=== PATIENT | male | born 1990 | race Caucasian/White ===

== ENCOUNTER 2020-11-15 14:40 | Outpatient (CLI) | payer BC, SELFPAY ==
--- NOTE | ~2020-11-15 | US_ITS ---
EXAMINATION: US soft tissue groin RT DATE: 11/15/2020 15:04 INDICATION: Right inguinal lymphadenopathy. TECHNIQUE: Multiple grayscale and Doppler ultrasound images of the right inguinal region were obtaine d. COMPARISON: None FINDINGS: There are multiple enlarged right inguinal lymph nodes. A sales account representative node measures 2.6 x 2.9 x 1.8 cm. IMPRESSION: 1. Right inguinal lymphadenopathy, which may be benign or malignant. Consider ultrasound-guided core needle biopsy. Reviewed, dictated and finalized at location A. IMPRESSION: 1. Right inguinal lymphadenopathy, which may be benign or malignant. Consider u ltrasound-guided core needle biopsy.
[2020-11-15 15:22] LABS: Basophils Percent Auto 0.6 % (0.2-1.2); Eosinophils Absolute Auto 0.3 K/mm3 (0-0.3); Eosinophils Percent Auto 4.1 % (0-4.4); Hematocrit 42.5 % (42.0-52.0); Hemoglobin 14.3 g/dL (14.0-18.0); Immature Granulocyte Absolute 0.02 K/mm3 (0.00-0.031); Immature Granulocyte Percent A 0.3 % (0-0.5); Lymphocytes Absolute Auto 1.75 K/mm3 (0.9-3.2); Mean Corpuscular HGB Conc 33.6 g/dl (32-36); Mean Platelet Volume 8.8 fl (7.4-10.4); Monocytes Absolute Auto 0.6 K/mm3 (0.1-0.6); Monocytes Percent Auto 8.6 % (2.6-8.5); Neutrophils Absolute Auto 4.3 K/mm3 (1.3-6.7); Neutrophils Percent Auto 61.4 % (45.5-73.1); Platelet Count Result 215 k/mm3 (150-375); Red Blood Count 4.62 M/mm3 (4.6-6.20); Red Cell Distribution Width 12.2 % (11.5-14.5)
[2020-11-15 15:33] LABS: Alanine Aminotransferase 38 U/L (4-50); Albumin Level 4.4 g/dL (3.5-5.1); Alkaline Phosphatase 63 U/L (38-126); Anion Gap 5 mmol/L (8-16); Aspartate Amino Transferase 37 U/L (17-59); Bilirubin,Total 0.6 mg/dL (0.2-1.3); Blood Urea Nitrogen 3 mg/dL (9-20); Calcium 9.9 mg/dL (8.4-10.2); Carbon Dioxide 33 mmol/L (22-30); Chloride 102 mmol/L (98-107); Estimated Glomerular Filt Rate > 60; Glucose 97 mg/dL (65-110); Sodium 140 mmol/L (137-145)
== END 2020-11-15 14:41 | disposition home or self-care (01) ==
PROVIDERS: PCP Family Medicine; Visit Provider Nurse Practitioner Family
DX: R59.9 Enlarged lymph nodes, unspecified (principal); R10.9 Unspecified abdominal pain
CPT/HCPCS: 36415; 76882; 80053; 85025

== ENCOUNTER 2020-11-26 13:21 | Outpatient (CLI) | payer BC, SELFPAY ==
--- NOTE | ~2020-11-26 | US_ITS ---
EXAMINATION: US soft tissue groin RT DATE: 11/26/2020 13:53 INDICATION: Right inguinal lymphadenopathy. TECHNIQUE: Multiple grayscale and Doppler ultrasound images of the right groin were obtained. COMPARISON: Ultrasound 11/15/2020 FINDINGS: There are normal-sized right inguinal lymph nodes with interval improvement. IMPRESSION: 1. Normal right inguinal lymph nodes with interval improvement. The biopsy was canceled. Reviewed, dictated and finalized at location A.
== END 2020-11-26 13:22 | disposition home or self-care (01) ==
PROVIDERS: PCP Family Medicine; Visit Provider Nurse Practitioner Family
DX: R59.0 Localized enlarged lymph nodes (principal)
CPT/HCPCS: 76882

== ENCOUNTER 2020-12-24 15:58 | Outpatient (CLI) | payer BC, SELFPAY ==
--- NOTE | ~2020-12-24 | XR_ITS ---
EXAMINATION: XR tibia fibula LT 2V, XR tibia fibula RT 2V DATE: 12/24/2020 16:26 INDICATION: Bilateral lower limb pain. TECHNIQUE: 1. Anteroposterior and lateral views of the left tibia and fibula were obtained. 2. Anteroposterior and lateral views of the right tibia and fibula were obtained. COMPARISON: None. FINDINGS: Normal alignment at the both lower legs. No fracture. Joint spaces are normal at the bilateral knees, ankles and subtalar joints. Soft tissues are unremarkable. No knee or ankle joint effusions. IMPRESSION: 1. Negative bilateral lower leg radiographs. Reviewed, dictated and finalized at location A. IMPRESSION: 1. Negative bilateral lower leg radiographs.
== END 2020-12-24 15:59 | disposition home or self-care (01) ==
LOC: ANHIMG 16:03
PROVIDERS: PCP Family Medicine; Visit Provider Physician Assistant Medical
DX: M79.604 Pain in right leg (principal); M79.605 Pain in left leg; R59.0 Localized enlarged lymph nodes
CPT/HCPCS: 73590

== ENCOUNTER 2024-03-09 09:35 | Emergency (ER) | payer SELFPAY ==
[2024-03-09 09:43] VITALS: BP 128/75; PULSE 73; RESP 16; TEMP 36.5; O2SAT 99
--- NOTE | 2024-03-09 09:44 | ED_ITS ---
HPI - Skin/Abscess/Foreign Bdy General Chief complaint: Skin/Abscess/Foreign Body Stated complaint: right thumb swollen/painful Time Seen by Provider: 03/09/24 09:45 Source: patient and RN notes reviewed Mode of arrival: ambulatory Limitations: dementia History of Present Illness HPI narrative: 34-year-old male presents concern for redness, swelling, pain to the 1st digit of the right hand. Reports he had a small cut last week that had a small amount of purulence drainage shortly after and since then symptoms have progressed to the entire finger being tender, red, swollen. He denies decreased strength, sensation, range of motion in the digit. MD complaint: other (Redness) Related Data Allergies Allergy/AdvReac Type Severity Reaction Status Date / Time Penicillins Allergy Intermediate rash Verified 12/24/20 13:41 Review of Systems Review of Systems: CONSTITUTIONAL: Denies malaise, chills, sweats, or fever. EYES: Denies redness, or discharge. ENT: Denies rhinorrhea, congestion, swollen lips, swollen tongue CARDIOVASCULAR: Denies chest pain, palpitations, or edema. RESPIRATORY: Denies cough or dyspnea. GASTROINTESTINAL: Denies abdominal pain, nausea, vomiting SKIN: Reports redness, swelling, tenderness of the 1st digit of the right hand. Denies purulent drainage, vesicles, bullae, numbness, pain beyond proportion MUSCULOSKELETAL: Denies joint pain or myalgia. NEUROLOGIC: Denies headache. All systems reviewed & are unremarkable except as noted in HPI and below PMFSH Past Medical History Medical History BMI 20.0-20.9, adult Family History Family History Father Hypertension Acute myocardial infarction Mother Ovarian cancer Sibling No problems noted. 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 There is no relevant family history pertinent to the presenting complaint Exam Narrative: GENERAL: Well-appearing, well-nourished, and in no acute distress. HEAD: Normocephalic, atraumatic. EYES: PERRLA, conjunctivae clear ENT: Mucous membranes moist. NECK: Supple. No lymphadenopathy CHEST: Clear to auscultation. No respiratory distress. HEART: Regular rate and rhythm. SKIN: Warm, dry. Erythema, induration, tenderness, warmth with sharp margins noted to the 1st digit of the right hand. No vesicles, bullae, necrosis, ecchymosis, crepitus noted. NEURO: Alert and oriented x3. PSYCH: Normal mood and affect Course Course Emergency Course: Patient is aware of diagnosis, understands and agrees to treatment plan. Anticipatory guidance given. Patient agrees to follow-up as directed and is aware of reasons to seek care at the emergency department. Portions of this record may have been created with voice recognition software Level of Care: [facility] Visit Vital Signs Vital signs: Vital Signs Temperature 97.7 F 03/09/24 09:43 Pulse Rate 73 03/09/24 09:43 Respiratory Rate 16 03/09/24 09:43 Blood Pressure 128/75 03/09/24 09:43 Pulse Oximetry 99 03/09/24 09:43 Oxygen Delivery Room Air 03/09/24 09:43 Temperature 97.7 F 03/09/24 09:43 Pulse Rate 73 03/09/24 09:43 Respiratory Rate 16 03/09/24 09:43 Blood Pressure 128/75 03/09/24 09:43 Pulse Oximetry 99 03/09/24 09:43 Oxygen Delivery Room Air 03/09/24 09:43 Reviewed. MDM - Skin/Abscess/Foreign Bdy MDM Narrative Medical decision making narrative: I evaluated this in the [facility]. History is obtained from patient who is an independent historian and physical exam was performed.? Available medical records were reviewed. ? Exam findings and relevant testing show no acute concerns or changes; patient is non-toxic appearing and is in no distress. No risk factors or findings concerning for epidural abscess, diskitis, vertebral osteomyelitis, cord compression, cauda equina, vertebral fracture or bone malignancy, AAA, or pyelonephritis. Patient instructed to consider further imaging and workup through their primary care physician as an outpatient if symptoms persist. Does not appear at this time to be erythema multiforme, bullous, SJS, TEN; no evidence at this time to suggest RMSF, NSTI, endocarditis or Lyme disease; patient looks well, nontoxic and is tolerating oral intake; no neurologic signs or symptoms; no headache, photophobia or neck pain; afebrile.? Patient does not have history of of penetrating trauma, laceration, blunt trauma, recent surgery, immunosuppression, malignancy, obesity, alcoholism, corticosteroid use.? Discussed the importance of follow-up, patient agrees; question, cellulitis versus necrotizing soft tissue infection versus abscess.?? Patient is appropriate for outpatient treatment and follow-up. Critical Care Time Critical Care Time Critical Care Time: No Discharge Plan Discharge Clinical Impression: Cellulitis Patient Disposition: Home, Self-Care Condition: Stable Instructions: Antibiotic Form, Cellulitis (ED) Additional Instructions: Please follow up with your Primary Care Doctor within 48-72 hours - call for an appointment. Rest and elevate affected area; apply moist heat 3-4 times daily for 10-15 minutes. Take Motrin 600mg every 8 hours with food for pain. Please take Antibiotics as directed. If you experience any worsening redness, swelling, streaking (red lines), fever or chills please go to the ER Prescriptions: New clindamycin HCl 300 mg capsule 300 mg PO Q8H 7 Days Qty: 21 0RF Follow-up/Referrals: PHYSICIAN,ENVIRONMENTAL RESEARCH SCIENTIST [Primary Care Provider] - Time of Disposition: 09:50
== END 2024-03-09 09:53 | disposition home or self-care (01) ==
PROVIDERS: Emergency Provider Nurse Practitioner
DX: L03.011 Cellulitis of right finger (principal)
CPT/HCPCS: 99213; G0463

== ENCOUNTER 2024-11-18 14:56 | Emergency (ER) | payer SELFPAY ==
--- OUTSIDE RECORDS SUMMARY | 2024-11-18 14:58 | XMS_ITS | Clinical Summary ---
Author Organization [facility] Address [address] [place] [address] Care Team Providers Care Welder Fabricator Name Role Phone Unavailable Primary Care Provider Unavailabl e Social History Tobacco Use Types Packs/Day Years Used Date Smoking Tobacco: Never Assessed Sex and Gender Information Value Date Recorded Sex Assigned at Not on file Legal Sex Male 5:40 PM CDT Gender Identity Not on file Sexual Orientation Not on file Plan of Treatment Health Maintenance Due Date Last Done Comments HPV VACCINES (1 - Male 3-dose series) 2005 DTAP/TDAP/TD VACCINES (1 - Tdap) 2009 HEPATITIS B VACCINES (1 of 3 - 19+ 3-dose series) 02/05 INFLUENZA VACCINE (#1) 2024
[2024-11-18 15:04] VITALS: BP 115/69; PULSE 71; RESP 18; TEMP 36.6; O2SAT 99
--- NOTE | 2024-11-18 15:31 | ED_ITS ---
HPI - Male Genitourinary General Chief complaint: Urogenital-Male Stated complaint: Urinary Problem Time Seen by Provider: 11/18/24 15:31 Source: patient Mode of arrival: ambulatory Limitations: no limitations History of Present Illness HPI Narrative: 34-year-old male presents with dysuria for 1 week. No other symptoms. Denies penile discharge. Concern for STI due to recent break-up with fiance. All systems reviewed and negative except as noted above. Related Data Allergies Allergy/AdvReac Type Severity Reaction Status Date / Time Penicillins Allergy Intermediate rash Verified 11/18/24 15:24 [facility] Past Medical History Medical History BMI 20.0-20.9, adult Family History Family History Father Hypertension Acute myocardial infarction Mother Ovarian cancer Sibling No problems noted. 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 There is no relevant family history pertinent to the presenting complaint. Exam Narrative: GENERAL: This is a well-nourished, well-developed patient, in no apparent distress. HEAD: normocephalic, atraumatic. EYES: PERRL. Sclera clear/white. Vision is grossly intact. EARS: External ears normal NOSE: External nose normal NECK: Neck supple, non-tender without lymphadenopathy, masses or thyromegaly. CARDIOVASCULAR: Regular rate and rhythm without murmurs, gallops, or rubs. RESPIRATORY: Clear to auscultation. Breath sounds equal bilaterally. No wheezes, rales, or rhonchi. SKIN: warm, Dry, intact with no suspicious lesions or rash, good texture and t urgor. NEURO: awake, alert, and oriented to person, place and time. There were no obvious focal neurologic abnormalities. EXTREMITIES: No joint tenderness, effusion, or edema noted. Course Course Level of Care: Express Care Visit Vital Signs Vital signs: Vital Signs Temperature 36.6 C 11/18/24 15:04 Pulse Rate 71 11/18/24 15:04 Respiratory Rate 18 11/18/24 15:04 Blood Pressure 115/69 11/18/24 15:04 Pulse Oximetry 99 11/18/24 15:04 Oxygen Delivery Room Air 11/18/24 15:04 Temperature 36.6 C 11/18/24 15:04 Pulse Rate 71 11/18/24 15:04 Respiratory Rate 18 11/18/24 15:04 Blood Pressure 115/69 11/18/24 15:04 Pulse Oximetry 99 11/18/24 15:04 Oxygen Delivery Room Air 11/18/24 15:04 Reviewed MDM - Male Genitourinary MDM Narrative Medical decision making narrative: urinalysis normal. Testing ordered for gonorrhea, chlamydia and Trichomonas. Patient treated with ceftriaxone IM today. given Prescription for doxycycline. Differential Diagnosis Differential diagnosis: Likely urinary tract infection, urethritis and epididymitis Lab Data Labs: Lab Results 11/18/24 Range/Units 15:36 POC Urine Color Yellow POC Urine Clarity Clear POC Urine pH 7.0 POC Ur Specif [place] 1.015 POC Urine Protein Negative (Negative) POC Ur Glucose (UA) Negative (Negative) POC Urine Ketones Negative (Negative) POC Urine Blood Negative (Negative) POC Urine Nitrite Negative (Negative) POC Urine Bilirubin Negative (Negative) POC Urine Urobilinogen 0.2 POC U Leukocyte Esteras Negative (Negative) Discharge Plan Discharge Clinical Impression: Dysuria, Concern about STI in male without diagnosis Patient Disposition: Home Condition: Stable Instructions: Antibiotic Form, Sexually Transmitted Diseases (ED) Additional Instructions: Your urinalysis was normal today. Testing was ordered for gonorrhea, chlamydia and Trichomonas. Results will take 2-3 days. Take antibiotic as prescribed until gone. If you have a positive result inform your partner. Patient Language: Romanian Prescriptions: New doxycycline hyclate 100 mg capsule 100 mg PO BID 7 Days Qty: 14 0RF Follow-up/Referrals: PHYSICIAN,LICENSED HOME INSPECTOR [Primary Care Provider] - Time of Disposition: 16:15
[2024-11-18 15:39] LABS: EDUAAPPEAR Clear; EDUABILI Negative (Negative); EDUABLOOD Negative (Negative); EDUACOLOR1 Yellow; EDUAGLUCOSE Negative (Negative); EDUAKETONE Negative (Negative); EDUALEUKO Negative (Negative); EDUANITRATE Negative (Negative); EDUAPH 7.0; EDUAPROTEIN Negative (Negative); EDUASPGRAVITY 1.015; EDUAUROBILI 0.2
[2024-11-18] MEDS: cefTRIAXone 500 MG, LIDOCAINE 1% LOCAL INJ 1 ML IM (16:00)
[2024-11-18 20:24] LABS: Trichomonas Vag PCR NOT DETECTED (NOT DETECTE)
== END 2024-11-18 16:35 | disposition home or self-care (01) ==
PROVIDERS: Emergency Provider Nurse Practitioner Family
DX: R30.0 Dysuria (principal); Z20.2 Contact with and (suspected) exposure to infections with a predominantly sexual mode of transmission
CPT/HCPCS: 81003; 87491; 87591; 87661; 99213; G0463; J0696; J2003